=== PATIENT | female | born 1945 | race Caucasian/White ===

== ENCOUNTER 2018-08-08 22:51 | Emergency (ER) | payer MEDICARE ==
[~2018-08-08] VITALS: Ht 167.6 cm; Wt 77.3 kg
[~2018-08-08 22:51] MED LIST: ASPI-611 PO; ATOR40TA71 PO; CARV-50 PO; CLOP75TA35 PO; DOCU250C19 PO; EZET10TA14 PO; GABA-532 PO; HYDR-4383 PO; LEVO750T21 PO; METH5TAB PO
[2018-08-08] MEDS ORDERED: ondansetron 4mg rapidly disintigrating tab PO ONE (23:25)
[2018-08-08] MEDS ORDERED: morphine 4 MG/ML inj SYRINge IM ONE (23:25)
[2018-08-08] MEDS ORDERED: morphine 4 MG/ML inj SYRINge IV ONE (23:40)
[2018-08-09] MEDS ORDERED: normal saline 1000ml 1,000 ML IV ONE (01:35)
[2018-08-09] MEDS ORDERED: normal saline 1000ML IV soln IVB ONE (02:05)
[2018-08-09 02:46] VITALS: BP 119/59
== END 2018-08-09 03:03 | disposition home or self-care (01) ==
LOC: ER 22:52
DX: S31.811A Laceration without foreign body of right buttock, initial encounter (principal); I25.10 Atherosclerotic heart disease of native coronary artery without angina pectoris; I25.2 Old myocardial infarction; N18.9 Chronic kidney disease, unspecified; G89.29 Other chronic pain; Z95.5 Presence of coronary angioplasty implant and graft; Z88.8 Allergy status to other drugs, medicaments and biological substances; Z88.1 Allergy status to other antibiotic agents; Z91.041 Radiographic dye allergy status; Z79.82 Long term (current) use of aspirin; Z79.899 Other long term (current) drug therapy; W01.198A Fall on same level from slipping, tripping and stumbling with subsequent striking against other object, initial encounter; Y93.89 Activity, other specified; Y92.89 Other specified places as the place of occurrence of the external cause; Y99.9 Unspecified external cause status
CPT/HCPCS: 12004; 93005; 96374; 99284; J2270; J7030; 96361

== ENCOUNTER 2018-09-03 13:21 | Emergency (ER) | payer MEDICARE ==
[~2018-09-03] VITALS: Ht 167.6 cm; Wt 80.0 kg
[2018-09-03 13:33] VITALS: BP 134/65
== END 2018-09-03 15:40 | disposition home or self-care (01) ==
LOC: ER 13:22
DX: R82.71 Bacteriuria (principal); I25.10 Atherosclerotic heart disease of native coronary artery without angina pectoris; N18.9 Chronic kidney disease, unspecified; G89.29 Other chronic pain; I25.2 Old myocardial infarction; Z98.62 Peripheral vascular angioplasty status; Z88.5 Allergy status to narcotic agent; Z88.2 Allergy status to sulfonamides; Z79.82 Long term (current) use of aspirin; Z79.899 Other long term (current) drug therapy
CPT/HCPCS: 99281

== ENCOUNTER 2019-05-23 22:18 | Inpatient (IN) | payer MEDICARE ==
[~2019-05-23] VITALS: Ht 167.6 cm; Wt 78.3 kg
[~2019-05-23 22:18] MED LIST changes: -EZET10TA14 PO; +EZET10TA21 PO
[2019-05-23 22:54] LABS: ALANINE AMINOTRANSFERASE 34 U/L (12-78); ALBUMIN 3.6 G/DL (3.4-5.0); ALKALINE PHOSPHATASE 77 IU/L (46-116); ANION GAP 11 (8-16); ASPARTATE AMINO TRANSFERASE 28 U/L (10-37); BILIRUBIN,TOTAL 0.3 MG/DL (0.1-1.0); BLOOD UREA NITROGEN 45 MG/DL (7-18); BUN/CREATININE RATIO 19.5 (6.6-38.0); CALCIUM 9.3 MG/DL (8.5-10.1); CHLORIDE 111 MMOL/L (99-107); CREATININE 2.31 MG/DL (0.40-0.90); GLUCOSE 115 MG/DL (70-104); POTASSIUM 5.7 MMOL/L (3.5-5.1); SODIUM 141 MMOL/L (135-145); TOTAL CARBON DIOXIDE 18.7 MMOL/L (24-32); TOTAL PROTEIN 7.3 G/DL (6.4-8.2); eGFR 21 ML/MIN
[2019-05-23 22:55] LABS: PARTIAL THROMBOPLASTIN TIME 35 SECONDS (22-32)
[2019-05-23 22:58] LABS: BASOPHILS # (AUTO) 0.1 X10'3 (0-0.2); BASOPHILS % (AUTO) 1.2 % (0-1); EOSINOPHILS # (AUTO) 0.3 X10'3 (0-0.9); EOSINOPHILS % (AUTO) 3.7 % (0-6); HEMOGLOBIN 11.7 g/dl (12.0-16.0); LYMPHOCYTES # (AUTO) 2.2 X10'3 (1.1-4.8); LYMPHOCYTES % (AUTO) 29.8 % (21-51); MEAN CORPUSCULAR HEMOGLOBIN 29.9 PG (27.0-31.0); MEAN CORPUSCULAR HGB CONC 32.4 g/dL (33.0-36.5); MEAN CORPUSCULAR VOLUME 92.3 FL (78-98); MEAN PLATELET VOLUME 8.6 FL (7.4-10.4); MONOCYTES # (AUTO) 0.6 X10'3 (0-0.9); MONOCYTES % (AUTO) 8.4 % (2-12); NEUTROPHILS # (AUTO) 4.3 X10'3 (1.8-7.7); NEUTROPHILS % (AUTO) 56.9 % (42-75); PLATELET COUNT 267 X10'3 (140-440); RED CELL DISTRIBUTION WIDTH 15.9 % (11.5-14.5); WHITE BLOOD COUNT 7.5 X10'3 (4.5-11.0)
[2019-05-23] MEDS ORDERED: ondansetron/PF 4mg/2ml inj IV ONE (23:45)
[2019-05-23] MEDS ORDERED: aspirin 81mg tab.chew PO ONE (23:45)
[2019-05-23] MEDS ORDERED: morphine 4 MG/ML inj SYRINge IV ONE (23:45)
[2019-05-23] MEDS ORDERED: furosemide 10 MG/1 ML 10ml inj IV ONE (23:50)
[2019-05-24] MEDS ORDERED: NITR0.4T48 PO (00:16)
[2019-05-24] MEDS ORDERED: LISI-600 PO (00:16)
[2019-05-24] MEDS ORDERED: NIT10P TD (00:16)
[2019-05-24] MEDS ORDERED: CARV6.253 PO (00:16)
[2019-05-24] MEDS ORDERED: NITR50CA PO (00:16)
[2019-05-24] MEDS ORDERED: dextrose 50%-water 50ml dispensing syringe IV ONE ×2 (00:25→06:15)
[2019-05-24] MEDS ORDERED: insulin regular, human 10 units/0.1 ml syringe IV ONE ×2 (00:25→06:15)
[2019-05-24] MEDS ORDERED: calcium gluconate inj. 1 GM in normal saline 100ml IV soln 90 ML IV ONE (00:25)
[2019-05-24] MEDS ORDERED: albuterol 2.5 MG/3 ML nebule NEB ONE (00:25)
[2019-05-24] MEDS ORDERED: sodium polystyrene sulfonate 15gm/60ml oral suspension PO ONE ×2 (00:25→06:15)
[2019-05-24] MEDS ORDERED: mag hydrox/Alum hydrox/simeth 30ml oral suspension PO PRN (00:30)
[2019-05-24] MEDS ORDERED: magnesium hydroxide 30ml (MOM) UD suspension PO PRN (00:30)
[2019-05-24] MEDS ORDERED: potassium Cl 20 mEq SR tablet PO PRN ×2 (00:30)
[2019-05-24] MEDS ORDERED: potassium CL 10mEq/100ml bag 100 ML IV PRN ×2 (00:30)
[2019-05-24] MEDS ORDERED: magnesium Cl slow-release 64mg tablet PO PRN (00:30)
[2019-05-24] MEDS ORDERED: magnesium 4gm in 100ml NS 100 ML IV PRN (00:30)
[2019-05-24] MEDS ORDERED: nitroGLYCERIN 0.4mg SUBLingual tab SL PRN (00:30)
[2019-05-24] MEDS ORDERED: magnesium 2GM in 50ml NS 50 ML IV PRN (00:30)
[2019-05-24] MEDS ORDERED: acetaminophen 325mg tablet PO PRN ×2 (00:30)
[2019-05-24 00:45] LABS: ABG BASE EXCESS -9.7 mmol/L (-2.0-3.0); ABG HCO3 15.8 mmol/L (22.0-26.0); ABG OXYGEN SATURATION 90.7 % (95-98); ABG PCO2 (T) 32.5 mmHg (35.0-45.0); ABG PH (T) 7.301 (7.350-7.450); ABG PO2 (T) 65.4 mmHg (83-108); ALLEN'S TEST Positive; FCOHb 1.3 % (0.5-1.5); FLOW 4 L/min; FMetHb 0.3 % (0.3-1.12); FO2Hb 89.2 % (94-100); PATIENT TEMPERATURE 36.4; RESPIRATORY RATE (OBSERVED) 18 b/min; TOTAL HEMOGLOBIN 12.3 G/dl (12.0-16.0)
--- NOTE | 2019-05-24 01:24 | NUR ---
Patient in ED to be transferred to room 3026B . I have received report from VERONICA Moise and had the opportunity to ask questions and assume patient care.
[2019-05-24 01:40] VITALS: BP 162/81
[2019-05-24] MEDS: HYDROcodone/acetaminophen 5mg/325mg tablet PO PRN ×4 (02:33→20:30)
[2019-05-24 05:36] LABS: ALANINE AMINOTRANSFERASE 31 U/L (12-78); ALBUMIN 3.4 G/DL (3.4-5.0); ALBUMIN/GLOBULIN RATIO 0.9 (1.1-1.5); ALKALINE PHOSPHATASE 78 IU/L (46-116); ANION GAP 11 (8-16); ASPARTATE AMINO TRANSFERASE 28 U/L (10-37); BILIRUBIN,TOTAL 0.3 MG/DL (0.1-1.0); BLOOD UREA NITROGEN 43 MG/DL (7-18); BUN/CREATININE RATIO 18.5 (6.6-38.0); CALCIUM 9.4 MG/DL (8.5-10.1); CHLORIDE 111 MMOL/L (99-107); CREATININE 2.33 MG/DL (0.40-0.90); GLUCOSE 122 MG/DL (70-104); SODIUM 141 MMOL/L (135-145); TOTAL PROTEIN 7.1 G/DL (6.4-8.2); eGFR 20 ML/MIN
[2019-05-24 05:41] LABS: POTASSIUM 6.8 MMOL/L (3.5-5.1)
[2019-05-24 06:00] VITALS: BP 129/91
--- NOTE | 2019-05-24 06:00 | NUR ---
Patient in room PCU 3026. I have received report from VERONICA Zepeda and had the opportunity to ask questions and assume patient care. Patient is currently resting in bed, bed locked and low, call light in reach, no acute distress. During report hossein RN received critical value, K 6.8, received orders for D50, insulin 10 units IV, bicarb and calcium gluconate, will give as soon as available from pharmacy.
--- NOTE | 2019-05-24 06:03 | NUR ---
PAGER ID: [phone] MESSAGE: Patient Arturo Boudreaux in room 3017A has a critical K+ of 6.8 and 6HR troponin level of 1.06. [facility] Katelyn [id number]
--- NOTE | 2019-05-24 06:09 | NUR ---
MD notified of critical potassium level of 6.8 and 6HR troponin level of 1.06. Orders have been placed to adhere to hyperK+ protocol.
[2019-05-24] MEDS ORDERED: sodium bicarbonate (8.4%) 1 mEq/ml syringe IV ONE (06:15)
[2019-05-24] MEDS ORDERED: calcium gluconate inj. 2 GM in normal saline 100ml IV soln 80 ML IV ONE (06:15)
--- NOTE | 2019-05-24 06:26 | NUR ---
Problems reprioritized. Patient report given, questions answered & plan of care reviewed with VERONICA Silva.
[2019-05-24] MEDS: furosemide 10 MG/1 ML 10ml inj IV SCH ×2 (07:26→20:28)
[2019-05-24] MEDS: heparin, porcine 5000 units/ml vial SQ SCH ×2 (07:27→20:29)
[2019-05-24] MEDS: aspirin 81mg tablet.DR PO SCH (07:28)
[2019-05-24] MEDS: gabapentin 300mg capsule PO SCH ×3 (07:28→20:30)
[2019-05-24] MEDS: nitroGLYCERIN 0.4mg/hour patch TD SCH (07:28)
[2019-05-24] MEDS: clopidogrel 75mg tablet PO SCH (07:28)
[2019-05-24] MEDS: carvedilol 6.25mg tablet PO SCH ×2 (07:29→20:32)
[2019-05-24] MEDS: K and/or MAG REPLACEMENT MC SCH (07:44)
[2019-05-24] MEDS: ondansetron/PF 4mg/2ml inj IV PRN ×2 (10:26→18:02)
[2019-05-24 11:00] VITALS: BP 131/69
[2019-05-24 11:58] LABS: POTASSIUM 4.8 MMOL/L (3.5-5.1)
--- NOTE | 2019-05-24 12:05 | NUR ---
NOTIFIED critical trop PAGER ID: [phone] MESSAGE: 3026B, Arturo Boudreaux- Critical value Trop 1.38. Victor Hugo RN PCU resource nurse
[2019-05-24 15:00] VITALS: BP 129/74
[2019-05-24 17:03] LABS: ALBUMIN 3.3 G/DL (3.4-5.0); ANION GAP 9 (8-16); BLOOD UREA NITROGEN 45 MG/DL (7-18); CALCIUM 9.2 MG/DL (8.5-10.1); CHLORIDE 109 MMOL/L (99-107); CREATININE 2.37 MG/DL (0.40-0.90); GLUCOSE 111 MG/DL (70-104); POTASSIUM 4.7 MMOL/L (3.5-5.1); SODIUM 143 MMOL/L (135-145); TOTAL CARBON DIOXIDE 24.8 MMOL/L (24-32); eGFR 20 ML/MIN
--- NOTE | 2019-05-24 18:22 | NUR ---
Problems reprioritized. Patient report given, questions answered & plan of care reviewed with VERONICA Zepeda. Patient currently resting in bed, bed locked and low call light in reach, stable at shift change.
[2019-05-24 19:00] VITALS: BP 117/57
[2019-05-24] MEDS: methadone 5mg tablet PO SCH (20:30)
[2019-05-24] MEDS: nitrofurantoin macrocrystal 50mg capsule PO SCH (20:32)
[2019-05-24 23:00] VITALS: BP 130/61
[2019-05-25] VITALS (7 sets, daily range): BP systolic 107–128; BP diastolic 52–65
[2019-05-25] MEDS: HYDROcodone/acetaminophen 5mg/325mg tablet PO PRN ×6 (00:25→23:45)
[2019-05-25 00:54] LABS: ALBUMIN 3.3 G/DL (3.4-5.0); ANION GAP 10 (8-16); BLOOD UREA NITROGEN 47 MG/DL (7-18); BUN/CREATININE RATIO 19.3 (6.6-38.0); CALCIUM 9.3 MG/DL (8.5-10.1); CHLORIDE 108 MMOL/L (99-107); CREATININE 2.44 MG/DL (0.40-0.90); GLUCOSE 93 MG/DL (70-104); MAGNESIUM 1.7 MG/DL (1.5-2.4); SODIUM 143 MMOL/L (135-145); TOTAL CARBON DIOXIDE 24.9 MMOL/L (24-32); eGFR 19 ML/MIN
[2019-05-25 00:57] LABS: POTASSIUM 4.7 MMOL/L (3.5-5.1)
[2019-05-25 00:58] LABS: TROPONIN I 0.89 NG/ML (0.0-0.05)
--- NOTE | 2019-05-25 06:36 | NUR ---
Problems reprioritized. Patient report given, questions answered & plan of care reviewed with VERONICA Tejada.
[2019-05-25 06:57] LABS: BASOPHILS # (AUTO) 0.1 X10'3 (0-0.2); BASOPHILS % (AUTO) 1.9 % (0-1); EOSINOPHILS # (AUTO) 0.2 X10'3 (0-0.9); EOSINOPHILS % (AUTO) 4.2 % (0-6); HEMATOCRIT 37.9 % (35.0-45.0); HEMOGLOBIN 12.3 g/dl (12.0-16.0); LYMPHOCYTES # (AUTO) 1.4 X10'3 (1.1-4.8); LYMPHOCYTES % (AUTO) 29.7 % (21-51); MEAN CORPUSCULAR HEMOGLOBIN 29.9 PG (27.0-31.0); MEAN CORPUSCULAR HGB CONC 32.4 g/dL (33.0-36.5); MEAN CORPUSCULAR VOLUME 92.3 FL (78-98); MEAN PLATELET VOLUME 8.4 FL (7.4-10.4); MONOCYTES # (AUTO) 0.5 X10'3 (0-0.9); MONOCYTES % (AUTO) 10.8 % (2-12); NEUTROPHILS # (AUTO) 2.5 X10'3 (1.8-7.7); NEUTROPHILS % (AUTO) 53.4 % (42-75); PLATELET COUNT 209 X10'3 (140-440); RED BLOOD COUNT 4.11 X10'6 (4.20-5.60); RED CELL DISTRIBUTION WIDTH 15.7 % (11.5-14.5); WHITE BLOOD COUNT 4.7 X10'3 (4.5-11.0)
--- NOTE | 2019-05-25 07:12 | NUR ---
Patient in room PCU 3026. I have received report from VERONICA Zepeda and had the opportunity to ask questions and assume patient care.
[2019-05-25] MEDS: gabapentin 300mg capsule PO SCH ×3 (07:36→20:34)
[2019-05-25] MEDS: aspirin 81mg tablet.DR PO SCH (07:36)
[2019-05-25] MEDS: clopidogrel 75mg tablet PO SCH (07:36)
[2019-05-25] MEDS: heparin, porcine 5000 units/ml vial SQ SCH ×2 (07:37→20:35)
[2019-05-25] MEDS: nitroGLYCERIN 0.4mg/hour patch TD SCH (07:38)
[2019-05-25] MEDS: furosemide 10 MG/1 ML 10ml inj IV SCH ×2 (07:38→20:34)
[2019-05-25] MEDS: carvedilol 6.25mg tablet PO SCH ×2 (07:39→20:34)
[2019-05-25] MEDS: K and/or MAG REPLACEMENT MC SCH (08:00)
[2019-05-25] MEDS ORDERED: FURO-150 PO (12:26)
--- NOTE | 2019-05-25 13:36 | NUR ---
Prescription called to [facility] on [address], phone number [phone].
--- NOTE | 2019-05-25 14:43 | NUR ---
WENT IN AND DID DISCHARGE PAPERWORK WITH PT. WHEN ALL DISCHARGE EDUCATION GIVEN TO PT AND ASKED HER IF SHE HAD ANY QUESTIONS OR CONCERNS SHE SAID THAT SHE IS HAVING SOME LEFT SIDED CHEST WARMTH/ DISCOMFORT RATING 2/10. EKG DONE AND SPOKE WITH DR. SEGUNDO WHO SAID TO TELL PT WE WILL HOLD OFF ON DISCHARGE FOR NOW AND MONITOR HER LONGER. PT AGREED. PT DOES NOT WANT TO HAVE REAL SCAN OR HEARTH CATH. PT STATES IN THE PAST SHE HAD AN DE ON THE TABLE WHEN HAVING HEART CATH AND HAS BEEN ADVISED BY HER PMD AND ELECTROLOG OPERATOR AT [facility] TO NOT HAVE THESE TESTS DONE. DR. SEGUNDO IS AWARE. Addendum: 05/25/19 at 1505 by Mallory Meier RN BP 113/64 HR 86 O2 93% RA
--- NOTE | 2019-05-25 15:05 | NUR ---
PT STATES CHEST DISCOMFORT HAS RESOLVED. SHE THINKS THAT IT WAS ANXIETY.
--- NOTE | 2019-05-25 16:08 | NUR ---
pt asking if she is going to be discharged. called dr. callahan and she said she wants to keep her overnight, hold discharge
--- NOTE | 2019-05-25 18:23 | NUR ---
Problems reprioritized. Patient report given, questions answered & plan of care reviewed with VERONICA Zepeda.
[2019-05-25] MEDS: ondansetron/PF 4mg/2ml inj IV PRN (18:45)
[2019-05-25] MEDS: methadone 5mg tablet PO SCH (20:34)
[2019-05-25] MEDS: nitrofurantoin macrocrystal 50mg capsule PO SCH (20:34)
[2019-05-25] MEDS ORDERED: HYDROcodone/acetaminophen 10/325mg tab PO ONE (21:25)
[2019-05-26 02:00] VITALS: BP 123/70
[2019-05-26] MEDS: ondansetron/PF 4mg/2ml inj IV PRN ×2 (02:46→08:22)
[2019-05-26] MEDS: HYDROcodone/acetaminophen 5mg/325mg tablet PO PRN ×3 (04:03→12:20)
[2019-05-26 05:55] LABS: BASOPHILS # (AUTO) 0.1 X10'3 (0-0.2); BASOPHILS % (AUTO) 1.3 % (0-1); EOSINOPHILS # (AUTO) 0.2 X10'3 (0-0.9); EOSINOPHILS % (AUTO) 4.4 % (0-6); HEMOGLOBIN 12.1 g/dl (12.0-16.0); LYMPHOCYTES # (AUTO) 1.9 X10'3 (1.1-4.8); LYMPHOCYTES % (AUTO) 34.8 % (21-51); MEAN CORPUSCULAR HEMOGLOBIN 29.7 PG (27.0-31.0); MEAN CORPUSCULAR HGB CONC 32.6 g/dL (33.0-36.5); MEAN CORPUSCULAR VOLUME 91.3 FL (78-98); MEAN PLATELET VOLUME 8.4 FL (7.4-10.4); MONOCYTES # (AUTO) 0.7 X10'3 (0-0.9); MONOCYTES % (AUTO) 13.4 % (2-12); NEUTROPHILS # (AUTO) 2.6 X10'3 (1.8-7.7); NEUTROPHILS % (AUTO) 46.1 % (42-75); PLATELET COUNT 232 X10'3 (140-440); RED BLOOD COUNT 4.06 X10'6 (4.20-5.60); RED CELL DISTRIBUTION WIDTH 15.5 % (11.5-14.5); WHITE BLOOD COUNT 5.6 X10'3 (4.5-11.0)
[2019-05-26 06:00] VITALS: BP 136/83
[2019-05-26 06:06] LABS: ALBUMIN 3.4 G/DL (3.4-5.0); ANION GAP 12 (8-16); BLOOD UREA NITROGEN 54 MG/DL (7-18); CALCIUM 9.1 MG/DL (8.5-10.1); CHLORIDE 103 MMOL/L (99-107); GLUCOSE 94 MG/DL (70-104); MAGNESIUM 1.6 MG/DL (1.5-2.4); POTASSIUM 3.8 MMOL/L (3.5-5.1); SODIUM 141 MMOL/L (135-145); TOTAL CARBON DIOXIDE 25.9 MMOL/L (24-32); eGFR 15 ML/MIN
--- NOTE | 2019-05-26 06:43 | NUR ---
Problems reprioritized. Patient report given, questions answered & plan of care reviewed with VERONICA Pritchard.
--- NOTE | 2019-05-26 06:47 | NUR ---
Patient in room PCU 3026. I have received report from VERONICA UMANA and had the opportunity to ask questions and assume patient care.
[2019-05-26] MEDS: carvedilol 6.25mg tablet PO SCH (07:36)
[2019-05-26] MEDS: furosemide 10 MG/1 ML 10ml inj IV SCH (07:36)
[2019-05-26] MEDS: clopidogrel 75mg tablet PO SCH (07:39)
[2019-05-26] MEDS: gabapentin 300mg capsule PO SCH (07:39)
[2019-05-26] MEDS: aspirin 81mg tablet.DR PO SCH (07:39)
[2019-05-26] MEDS: nitroGLYCERIN 0.4mg/hour patch TD SCH (07:41)
[2019-05-26] MEDS: heparin, porcine 5000 units/ml vial SQ SCH (07:41)
[2019-05-26] MEDS: K and/or MAG REPLACEMENT MC SCH (08:00)
--- NOTE | 2019-05-26 08:47 | NUR ---
PAGER ID: [phone] MESSAGE: DR. SEGUNDO, [id number], HAS HAD SOME NAUSEA OVERNIGHT, RECIEVED ZOFRAN X2 LAST 6 HOURS.THIS IS NEW PER PT. B/C 54/3.00, WAS 54/2.44. GFR DOWN TO 15. [facility] 2606/5401. TY
[2019-05-26 11:00] VITALS: BP 139/58
--- NOTE | 2019-05-26 13:25 | NUR ---
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
== END 2019-05-26 13:15 | disposition home or self-care (01) | DRG 280 ==
LOC: ER 05-24 00:43 → PCU 3S 05-24 01:39
PROVIDERS: ADMIT Hospitalist; ATTEND Internal Medicine
DX: I21.4 Non-ST elevation (NSTEMI) myocardial infarction (principal); I50.23 Acute on chronic systolic (congestive) heart failure; N17.9 Acute kidney failure, unspecified; I13.0 Hypertensive heart and chronic kidney disease with heart failure and stage 1 through stage 4 chronic kidney disease, or unspecified chronic kidney disease; J91.8 Pleural effusion in other conditions classified elsewhere; N18.9 Chronic kidney disease, unspecified; M54.9 Dorsalgia, unspecified; G89.29 Other chronic pain; I25.10 Atherosclerotic heart disease of native coronary artery without angina pectoris; E78.5 Hyperlipidemia, unspecified; E78.00 Pure hypercholesterolemia, unspecified; E87.5 Hyperkalemia; Z88.8 Allergy status to other drugs, medicaments and biological substances; Z91.041 Radiographic dye allergy status; I25.2 Old myocardial infarction; Z95.5 Presence of coronary angioplasty implant and graft; Z82.49 Family history of ischemic heart disease and other diseases of the circulatory system; Z79.02 Long term (current) use of antithrombotics/antiplatelets; Z79.899 Other long term (current) drug therapy
CPT/HCPCS: 36415; 36600; 71045; 80048; 80053; 82803; 82948; 83735; 83880; 84132; 84484; 85018; 85025; 85610; 85730; 87081; 93005; 93306; 94640; 94760; 96365; 96375; 97116; 97161; 97530; 99291; G0378; J0610; J1644; J1815; J1940; J2270; J2405

== ENCOUNTER 2020-02-20 04:20 | Emergency (ER) | payer MEDICARE ==
[~2020-02-20] VITALS: Ht 167.6 cm; Wt 72.7 kg
[~2020-02-20 04:20] MED LIST changes: -CARV-50 PO; +CARV6.253 PO; -EZET10TA21 PO; +EZET10TA6 PO; -LEVO750T21 PO; +NITR0.4T48 PO; +NITR1PAT68 TD; +NITR50CA PO
[2020-02-20] MEDS ORDERED: LIDOcaine 1% W/epiNEPHrine 1:100,000 20ml vial SQ ONE (04:35)
[2020-02-20] MEDS ORDERED: cephalexin 250mg capsule PO ONE (05:20)
[2020-02-20 05:35] VITALS: BP 154/78
[2020-03-01] MEDS ORDERED: LISI-604 PO (15:02)
[2020-03-01] MEDS ORDERED: FURO40TA4 PO (15:02)
[2020-03-03] MEDS ORDERED: CEFD300C3 PO (10:46)
== END 2020-02-20 06:08 | disposition home or self-care (01) ==
LOC: ER 04:21
DX: S81.811A Laceration without foreign body, right lower leg, initial encounter (principal); I25.10 Atherosclerotic heart disease of native coronary artery without angina pectoris; I25.2 Old myocardial infarction; I13.0 Hypertensive heart and chronic kidney disease with heart failure and stage 1 through stage 4 chronic kidney disease, or unspecified chronic kidney disease; I50.9 Heart failure, unspecified; N18.9 Chronic kidney disease, unspecified; G89.29 Other chronic pain; Z98.61 Coronary angioplasty status; Z88.6 Allergy status to analgesic agent; Z88.2 Allergy status to sulfonamides; Z72.89 Other problems related to lifestyle; Z79.899 Other long term (current) drug therapy; W45.8XXA Other foreign body or object entering through skin, initial encounter; Y93.89 Activity, other specified; Y92.89 Other specified places as the place of occurrence of the external cause; Y99.8 Other external cause status
CPT/HCPCS: 12032; 99284

== ENCOUNTER 2020-05-26 09:35 | Emergency (ER) | payer MEDICARE ==
[~2020-05-26] VITALS: Ht 167.6 cm; Wt 77.3 kg
[~2020-05-26 09:35] MED LIST changes: -EZET10TA6 PO; +FURO40TA4 PO; +LISI-604 PO; -NITR1PAT68 TD; -NITR50CA PO
[2020-05-26 10:25] LABS: BASOPHILS # (AUTO) 0.1 X10'3 (0-0.2); BASOPHILS % (AUTO) 1.4 % (0-1); EOSINOPHILS # (AUTO) 0.3 X10'3 (0-0.9); EOSINOPHILS % (AUTO) 4.2 % (0-6); HEMATOCRIT 34.5 % (35.0-45.0); LYMPHOCYTES # (AUTO) 1.8 X10'3 (1.1-4.8); LYMPHOCYTES % (AUTO) 29.3 % (21-51); MEAN CORPUSCULAR HEMOGLOBIN 28.5 PG (27.0-31.0); MEAN CORPUSCULAR HGB CONC 31.8 g/dL (33.0-36.5); MEAN CORPUSCULAR VOLUME 89.6 FL (78-98); MEAN PLATELET VOLUME 8.2 FL (7.4-10.4); MONOCYTES # (AUTO) 0.6 X10'3 (0-0.9); MONOCYTES % (AUTO) 10.1 % (2-12); NEUTROPHILS # (AUTO) 3.3 X10'3 (1.8-7.7); PLATELET COUNT 279 X10'3 (140-440); RED BLOOD COUNT 3.85 X10'6 (4.20-5.60); RED CELL DISTRIBUTION WIDTH 15.4 % (11.5-14.5)
[2020-05-26 10:43] LABS: ALANINE AMINOTRANSFERASE 30 U/L (12-78); ALBUMIN 3.5 G/DL (3.4-5.0); ALBUMIN/GLOBULIN RATIO 0.9 (1.1-1.5); ALKALINE PHOSPHATASE 82 IU/L (46-116); ANION GAP 12 (8-16); ASPARTATE AMINO TRANSFERASE 17 U/L (10-37); BILIRUBIN,TOTAL 0.4 MG/DL (0.1-1.0); BLOOD UREA NITROGEN 39 MG/DL (7-18); BUN/CREATININE RATIO 17.1 (6.6-38.0); CALCIUM 8.8 MG/DL (8.5-10.1); CHLORIDE 109 MMOL/L (99-107); CREATININE 2.28 MG/DL (0.40-0.90); GLUCOSE 100 MG/DL (70-104); POTASSIUM 4.4 MMOL/L (3.5-5.1); SODIUM 141 MMOL/L (135-145); TOTAL CARBON DIOXIDE 20.3 MMOL/L (24-32); TOTAL PROTEIN 7.2 G/DL (6.4-8.2); eGFR 21 ML/MIN
[2020-05-26 12:00] VITALS: BP 166/87
[2020-05-26] MEDS ORDERED: methylPREDNISolone sod succ 125mg/2ml vial IV ONE (12:10)
[2020-05-26] MEDS ORDERED: ipratropium/albuterol 3ml nebule NEB ONE (12:10)
[2020-05-26] MEDS ORDERED: predniSONE 20 mg tablet PO ONE (13:05)
--- NOTE | 2020-05-26 13:23 | NUR ---
pt's O2 sat dropped to 89 when walking. aware and wants to keep pt for a few hours till the prednisone kicks in. Pt aware and states she can't stay. letting MD Go know.
[2020-05-26] MEDS ORDERED: PRED20TA PO (13:51)
--- NOTE | 2020-05-26 13:52 | NUR ---
PT UP AMBULATING IN HALLWAY WITH STEADY GAIT.
== END 2020-05-26 14:03 | disposition left against medical advice (07) ==
LOC: ER 09:36
DX: R06.02 Shortness of breath (principal); R09.02 Hypoxemia; Z20.828 Contact with and (suspected) exposure to other viral communicable diseases; I25.10 Atherosclerotic heart disease of native coronary artery without angina pectoris; E78.00 Pure hypercholesterolemia, unspecified; I13.0 Hypertensive heart and chronic kidney disease with heart failure and stage 1 through stage 4 chronic kidney disease, or unspecified chronic kidney disease; N18.9 Chronic kidney disease, unspecified; I50.9 Heart failure, unspecified; I25.2 Old myocardial infarction; G89.29 Other chronic pain; Z95.5 Presence of coronary angioplasty implant and graft; Z98.890 Other specified postprocedural states; Z87.891 Personal history of nicotine dependence; Z91.048 Other nonmedicinal substance allergy status; Z88.2 Allergy status to sulfonamides; Z88.8 Allergy status to other drugs, medicaments and biological substances; Z79.82 Long term (current) use of aspirin; Z79.899 Other long term (current) drug therapy
CPT/HCPCS: 36415; 71045; 80053; 83880; 84484; 85025; 87635; 93005; 94640; 99285; J7512; 94760

== ENCOUNTER 2020-05-27 07:11 | Emergency (ER) | payer MEDICARE ==
[~2020-05-27] VITALS: Ht 167.6 cm; Wt 68.0 kg
[~2020-05-27 07:11] MED LIST changes: +PRED20TA PO
[2020-05-27 07:13] VITALS: BP 158/90
--- NOTE | 2020-05-27 07:24 | NUR ---
walked patient 200 ft, patients heart rate went to 100 while talking and sats were around 95
== END 2020-05-27 07:54 | disposition home or self-care (01) ==
LOC: ER 07:12
DX: R06.02 Shortness of breath (principal); I25.10 Atherosclerotic heart disease of native coronary artery without angina pectoris; I50.9 Heart failure, unspecified; E78.00 Pure hypercholesterolemia, unspecified; I13.0 Hypertensive heart and chronic kidney disease with heart failure and stage 1 through stage 4 chronic kidney disease, or unspecified chronic kidney disease; I25.2 Old myocardial infarction; N18.9 Chronic kidney disease, unspecified; G89.29 Other chronic pain; Z98.61 Coronary angioplasty status; Z00.00 Encounter for general adult medical examination without abnormal findings; Z88.2 Allergy status to sulfonamides; Z88.8 Allergy status to other drugs, medicaments and biological substances; Z79.01 Long term (current) use of anticoagulants; Z79.899 Other long term (current) drug therapy
CPT/HCPCS: 99281

== ENCOUNTER 2021-03-15 17:14 | Emergency (ER) | payer MEDICARE ==
[~2021-03-15] VITALS: Ht 167.6 cm; Wt 69.7 kg
[~2021-03-15 17:14] MED LIST changes: +ALBU8.5H8 INH; -ATOR40TA71 PO; +CLOP75TA34 PO; -CLOP75TA35 PO; -FURO40TA4 PO; +HYDR-3972 PO; -HYDR-4383 PO; +LACT1CAP26 PO; -LISI-604 PO; +POTA10TA36 PO; -PRED20TA PO
[2021-03-15 17:37] VITALS: BP 139/76
== END 2021-03-15 21:02 | disposition home or self-care (01) ==
LOC: ER 17:14
DX: S91.011A Laceration without foreign body, right ankle, initial encounter (principal); I11.0 Hypertensive heart disease with heart failure; I13.0 Hypertensive heart and chronic kidney disease with heart failure and stage 1 through stage 4 chronic kidney disease, or unspecified chronic kidney disease; N18.9 Chronic kidney disease, unspecified; I50.9 Heart failure, unspecified; G89.29 Other chronic pain; M54.9 Dorsalgia, unspecified; W19.XXXA Unspecified fall, initial encounter; Y93.89 Activity, other specified; Y92.89 Other specified places as the place of occurrence of the external cause; Y99.8 Other external cause status
CPT/HCPCS: 12002; 99282